=== PATIENT | female | born 1935 | race Caucasian/White ===

== ENCOUNTER 2017-08-24 14:50 | Emergency (ER) | payer OTHER, MEDICARE ==
[~2017-08-24] VITALS: Ht 152.4 cm; Wt 77.1 kg
[~2017-08-24 14:50] MED LIST: ACETAMINOPHEN325 M1 PO; AMLODIPINE BESY10 MG PO; ASPIRIN EC81 M1 PO; ASPIRIN325 PO; ATENOLOL 25 MG25 M1 PO; ATORVASTATIN CA80 MG PO; CARDIZEM CD 18180 M3 PO; CARDIZEM CD120 MG PO; CIPROFLOXACIN500 M1 PO; DEEP SEA NASAL44 M1 NASAL; DUONEB 2.5-0.5 M3 ML INH; ESTRACE 0.01% VAG; EXELON 9.5 MG9.5 MG TD; FLONASE16 GM NASAL; LIPITOR80 MG PO; MAG-AL PLUS SUS30 ML PO; MUCINEX600 MG PO; NAMENDA 10 MG T10 MG PO; NEPHROCAPS SOFT1 CAP PO; NO NSAIDS; PROTONIX40 M2 PO; SENNA LAXATIVE8.6 MG PO; TUSSIONEX PENN473 ML PO; VITAMIN D1000 UNI1 PO; VITAMIN D3 COM1 EACH PO; XARELTO15 MG PO; XARELTO20 MG PO
[2017-08-24 15:50] LABS: URINE BILIRUBIN NEGATIVE (Negative); URINE BLOOD NEGATIVE (Negative); URINE CLARITY CLEAR; URINE COLOR YELLOW; URINE GLUCOSE-RANDOM* NEGATIVE (Negative); URINE KETONES NEGATIVE (Negative); URINE LEUKOCYTES-REFLEX NEGATIVE (Negative); URINE NITRITE-REFLEX NEGATIVE (Negative); URINE PROTEIN (DIPSTICK) NEGATIVE (Negative)
[2017-08-24 16:41] LABS: CALCIUM 8.8 mg/dL (8.5-10.1); CREATININE 1.3 mg/dL (0.6-1.0); POTASSIUM 4.4 mmol/L (3.5-5.1)
[2017-08-24 16:48] LABS: ABSOLUTE NEUTROPHILS 2.7 thou/uL (1.4-8.2); BASOPHILS 0.8 % (0.0-2.0); EOSINOPHILS 3.7 % (0.0-3.0); HEMATOCRIT 34.6 % (37.0-47.0); HEMOGLOBIN 11.9 gm/dL (12.0-15.0); LYMPHOCYTES 37.7 % (24.0-44.0); MCH 31.2 pg (26.0-34.0); MCHC 34.4 g/dL (28.0-37.0); MCV 90.8 fL (80.0-100.0); MONOCYTES 8.1 % (1.0-8.0); PLATELET COUNT 169 thou/uL (150-400); POLYS 49.7 % (36.0-66.0); RBC 3.81 mil/uL (4.20-5.00); WBC 5.4 thou/uL (4.0-11.0)
[2017-08-24 22:23] VITALS: BP 124/63
== END 2017-08-24 22:24 | disposition home or self-care (01) ==
LOC: ER 14:50
PROVIDERS: Nurse Practitioner Family
DX: T19.2XXA Foreign body in vulva and vagina, initial encounter (principal); N95.0 Postmenopausal bleeding; I10 Essential (primary) hypertension; E78.5 Hyperlipidemia, unspecified; I25.2 Old myocardial infarction; X58.XXXA Exposure to other specified factors, initial encounter; Y93.89 Activity, other specified; Y92.89 Other specified places as the place of occurrence of the external cause; Y99.8 Other external cause status